=== PATIENT | male | born 1970 | race Caucasian/White ===

== ENCOUNTER 2021-01-02 08:29 | Day surgery (SDC) | payer BC ==
[~2021-01-02 08:29] MED LIST: Midazolam 1 MG/ML 2 ML SDV ONE; Propofol 200 MG/20 ML SDV ONE; Sodium Chloride 0.9% 10 ML Syringe FLUSH PRN
[2021-01-02] MEDS: Lactated Ringers 1,000 ML IV SCH (09:23)
--- NOTE | 2021-01-02 09:40 | PCM.HPR ---
H & P Addendum review - H & P Addendum Review Date of Original H & P: 12/19/20 Date Reviewed: 01/02/21 Time Reviewed: 09:39 Patient was Examined: No Changes
[2021-01-02] MEDS ORDERED: Propofol 200 MG/20 ML SDV ONE (09:44)
[2021-01-02] MEDS ORDERED: Midazolam 1 MG/ML 2 ML SDV ONE (09:44)
--- NOTE | 2021-01-02 10:06 | PCM.OPNOTE ---
- General Post-Op/Procedure Note Date of Surgery/Procedure: 01/02/21 Operative Procedure(s): Colonoscopy Findings: Normal Pre Op Diagnosis: FH Colon Ca Post-Op Diagnosis: Same Anesthesia Technique: MAC Primary Surgeon: Mahad Sibley Anesthesia Provider: Silvina Vaca Complications: None Condition: Good
--- NOTE | 2021-01-02 11:07 | OR ---
Date of Procedure: 01/02/2021 PREOPERATIVE DIAGNOSIS: Family history of colon cancer in father. POSTOPERATIVE DIAGNOSIS: Normal colonoscopy. PROCEDURE: Colonoscopy. ANESTHESIA: IV sedation. PROCEDURE IN DETAIL: The patient was brought to the procedure room where he was placed on his left side and IV sedation administered. Digital rectal exam was performed, which was normal. Colonoscope was inserted and advanced to the level of the cecum without difficulty. Cecal position was confirmed by identifying the appendiceal lumen and ileocecal valve. Prep was good and surfaces were well visualized. Upon withdrawing the scope, the ascending, transverse, and descending colon were normal in appearance. Sigmoid colon and rectum were normal. Retroflexion was normal. Air was removed, and the scope withdrawn. Patient tolerated the procedure well and returned to recovery in stable condition. Recommend routine colon screening again in 5 years. JAY JAY CORREA MD /[id number]
== END 2021-01-02 10:58 | disposition home or self-care (01) ==
LOC: LL.SDS 08:29
PROVIDERS: ATTEND Surgery
DX: Z12.11 Encounter for screening for malignant neoplasm of colon (principal); Z80.0 Family history of malignant neoplasm of digestive organs; Z88.2 Allergy status to sulfonamides; Z01.812 Encounter for preprocedural laboratory examination; Z20.822 Contact with and (suspected) exposure to COVID-19
CPT/HCPCS: 00812; J2250; J2704; J7120; U0002